=== PATIENT | male | born 1985 | race African-American/Black ===

== ENCOUNTER 2019-09-18 14:05 | Emergency (ER) | payer MEDICAID ==
[~2019-09-18] VITALS: Ht 185.4 cm; Wt 129.0 kg
[2019-09-18] MEDS ORDERED: KETOROLAC 30MG/ML VIAL IM ONE (17:15)
[2019-09-18 19:38] VITALS: BP 145/92
== END 2019-09-18 19:39 | disposition home or self-care (01) ==
LOC: ER 14:05
DX: S80.12XA Contusion of left lower leg, initial encounter (principal); W50.0XXA Accidental hit or strike by another person, initial encounter; Y93.67 Activity, basketball; Y92.310 Basketball court as the place of occurrence of the external cause; R03.0 Elevated blood-pressure reading, without diagnosis of hypertension
CPT/HCPCS: 73610; 76881; 96372; 99284; J1885; Z7610